=== PATIENT | male | born 1985 | race Two or more races ===

== ENCOUNTER 2020-05-12 10:37 | Emergency (ER) | payer OTHER ==
[~2020-05-12] VITALS: Ht 175.3 cm; Wt 78.0 kg
[2020-05-12] MEDS ORDERED: IV NORMAL SALINE 1000ML BAG 1,000 ML IV SCH (11:01)
[2020-05-12 11:08] LABS: BILIRUBIN,URINE NEGATIVE (NEG); CLARITY,URINE CLEAR; COLOR,URINE AMBER; NITRITE,URINE NEGATIVE (NEG); PH,URINE 7.5 (<5.0-8.0); PROTEIN,URINE 100 mg/dL (NEG-TRACE); UROBILINOGEN,URINE 0.2 mg/dL (0.2 mg/dL)
[2020-05-12 11:09] LABS: BASO # 0.1 x10^3/uL (0.0-0.2); BASO % 1 % (0-3); EOS % 0 % (0-3); HEMATOCRIT 48.8 % (39.0-53.0); HEMOGLOBIN 16.8 g/dL (13.0-17.5); LYMPH # 1.5 x10^3/uL (1.0-4.8); LYMPH % 24 % (24-48); MEAN CORPUSCULAR HEMOGLOBIN 32 pg (25-35); MEAN CORPUSCULAR HGB CONC 35 g/dL (31-37); MEAN CORPUSCULAR VOLUME 93 fL (79-100); MONO # 0.4 x10^3/uL (0.0-1.1); MONO % 6 % (0-9); NEUT # 4.3 x10^3/uL (1.8-7.7); NEUT % 70 % (31-73); PLATELET COUNT 259 x10^3/uL (140-400); RED BLOOD COUNT 5.23 x10^6/uL (4.30-5.70); RED CELL DISTRIBUTION WIDTH 12.8 % (11.5-14.5); WHITE BLOOD COUNT 6.2 x10^3/uL (4.0-11.0)
[2020-05-12] MEDS ORDERED: PANTOPRAZOLE IV PUSH 40 MG VIAL. IVP ONE (11:15)
[2020-05-12] MEDS ORDERED: ONDANSETRON PF 4 MG/2 ML VIAL. IVP ONE (11:15)
[2020-05-12] MEDS ORDERED: IV NORMAL SALINE 1000ML BAG 1,000 ML IV ONE (11:15)
[2020-05-12 11:17] LABS: RBC,URINE 0 /HPF (0-2); WBC,URINE RARE /HPF (0-4)
[2020-05-12 11:18] LABS: BACTERIA,URINE 0 /HPF (0-FEW); PROTHROMBIN TIME PATIENT 11.9 SEC (11.7-14.0); SPERM,URINE PRESENT /HPF
--- NOTE | 2020-05-12 11:18 | PHYS DOC ---
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 He states he has continued to have nausea and vomiting and a burning sensation in his generalized abdomen area. He states he had a normal bowel movement today. He states that his vomit is either a yellow color or today it was clear with dark specks in it. He states that yesterday he tried to eat but it came back up. He states that he knows that whenever he drinks beer that sometimes it makes him hungry so he decided to drink 2 beers yesterday because he wanted to eat because he is feeling weak and he continued to vomit. He states that he works 10 hours a day driving a truck and then when he gets home he usually drinks 2-3 beers at night. He states he does not usually drink but he is going through a divorce. He states that his and children are in [place] and he is here by himself. He rates his burning abdominal discomfort a 9 out of 10. He states it is more of a discomfort rather than pain. Not taking any medications. He does not take any medications daily. (HAYLIE MORALES APRN) Review of Systems: Review of Systems: Constitutional: Denies fever or chills. [] Eyes: Denies change in visual acuity. [] HENT: Denies nasal congestion or sore throat. [] Respiratory: Denies cough or shortness of breath. [] Cardiovascular: Denies chest pain or edema. [] GI: + abdominal pain, +nausea, +vomiting with dark specks, denies bloody stools. + diarrhea. [] : Denies dysuria. [] Musculoskeletal: Denies back pain or joint pain. [] Integument: Denies rash. [] Neurologic: Denies headache, focal weakness or sensory changes. [] Endocrine: Denies polyuria or polydipsia. [] Lymphatic: Denies swollen glands. [] Psychiatric: Denies depression or anxiety. [] (HAYLIE MORALES APRN) Heart Score: Risk Factors: Risk Factors: DM, Current or recent (<one month) smoker, HTN, HLP, family history of CAD, obesity. Risk Scores: Score 0 - 3: 2.5% MACE over next 6 weeks - Discharge Home Score 4 - 6: 20.3% MACE over next 6 weeks - Admit for Clinical Observation Score 7 - 10: 72.7% MACE over next 6 weeks - Early Invasive Strategies (HAYLIE MORALES APRN) Current Medications: Current Medications Medications (Trade) Dose Ordered Sig/Raymond Start Time Stop Time Status Last Admin Dose Admin Ondansetron HCl (Zofran) 4 mg 1X ONCE 05/12/20 11:15 05/12/20 11:16 UNV Pantoprazole Sodium (PROTONIX VIAL for IV PUSH) 40 mg 1X ONCE 05/12/20 11:15 05/12/20 11:16 UNV Sodium Chloride 1,000 ml @ 1,000 mls/hr Q1H 05/12/20 11:01 05/12/20 12:00 UNV (HAYLIE MORALES APRN) Physical Exam: PE: Constitutional: Well developed, well nourished, no acute distress, non-toxic appearance. [] HENT: Normocephalic, atraumatic, bilateral external ears normal, oropharynx moist, no oral exudates, nose normal. [] Eyes: PERRLA, EOMI, conjunctiva normal, no discharge. [] Neck: Normal range of motion, no tenderness, supple, no stridor. [] Cardiovascular:Heart rate regular rhythm, no murmur [] Lungs & Thorax: Bilateral breath sounds clear to auscultation [] Abdomen: Bowel sounds normal, soft, RLQ tenderness, no masses, no pulsatile masses. [] Skin: Warm, diaphoretic, no erythema, no rash. [] Back: No tenderness, no CVA tenderness. [] Extremities: No tenderness, no cyanosis, no clubbing, ROM intact, no edema. [] Neurologic: Alert and oriented X 3, normal motor function, normal sensory function, no focal deficits noted. [] Psychologic: Affect normal, judgement normal, mood normal. [] (HAYLIE MORALES APRN) EKG: EK AND READ BY DR AUGUSTIN SINUS RHYTHM AND NO STEMI[] (HAYLIE MORALES APRN) Radiology/Procedures: Radiology/Procedures: [] Impression: [facility] [address] [place] [address] IMAGING REPORT Signed PATIENT: AVIVA BROWN: [id number] : 1985 LOCATION: ER AGE: 34 SEX: M EXAM STATUS: REG ER ORD. PHYSICIAN: HAYLIE MORALES APRN REASON: vomiting, abdominal pain PROCEDURE: CT ABD PELV W/ IV CONTRST ONLY Examination: CT ABD PELV W/ IV CONTRST ONLY History: Reason: vomiting, abdominal pain / Spl. Instructions: opmni 300 75ml / History: Comparison/Correlation: None Findings: Axial images of the abdomen and pelvis were obtained following IV contrast. Sagittal and coronal reformatted images were provided. Lung bases are clear. Liver, spleen, pancreas, adrenal glands, and kidneys are normal. Gallbladder fossa is unremarkable. There is no bowel obstruction. Diverticulosis is present. No inflammatory change about the cecum. No extraluminal gas. No large abdominal or pelvic lymph nodes. Minimal thickening of the ascending colon and hepatic flexure noted. Mild circumferential wall thickening involving distal transverse colon and descending colon also seen. No surrounding collections. Appendix is not delineated. Urinary bladder is unremarkable. Mild L4-5 disc space narrowing is present. Impression: Mild wall thickening of the colon which raises question of colitis. No obstruction. No focal inflammatory process or collection seen. Minimal diverticulosis. PQRS Compliance Statement: One or more of the following individualized dose reduction techniques were utilized for this examination: 1. Automated exposure control 2. Adjustment of the mA and/or kV according to patient size 3. Use of iterative reconstruction technique Electronically signed by: Adonis Awad MD (05/12/2020 12:00 PM) [id number] DICTATED and SIGNED BY: ADONIS AWAD MD DATE: 05/12/20 1200 (HAYLIE MORALES APRN) Course & Med Decision Making: Course & Med Decision Making Pertinent Labs and Imaging studies reviewed. (See chart for details) See HPI. Alert and oriented x4. Speaks in full complete sentences. Ambulatory with steady gait. Skin is pink, moist, warm. Abdomen is soft but slightly tender to the right lower quadrant. Patient denies fever, chest pain, shortness of breath, cough, dizziness, headache, syncope, blood in his stool, vision changes, focal weakness, numbness or tingling. Patient is given 2 L of normal saline, Protonix, Zofran in the ED. Impression: Mild wall thickening of the colon which raises question of colitis. No obstruction. No focal inflammatory process or collection seen. Minimal diverticulosis. Patient states after the Protonix, Zofran was given that the nausea is better but he still having the burning sensation in his abdominal pain. Patient is given a GI cocktail and also this will p.o. challenge him to make sure he can keep it down. Patient has successfully been p.o. challenged. He is still complaining of generalized epigastric burning. He states that it has gotten better that he rates it at a 5 or 6. Due to the patient being afebrile, and hemodynamically stable he will be discharged home. Patient will be sent home on Zofran, Protonix, Carafate, Cipro, Flagyl. She is referred to GI. 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 I was available for consultation as needed during the patient's visit in the emergency department. I agree with the clinical impression, plans and disposition. (LUZ AUGUSTIN MD) Carlos Enriqueon Disclaimer: Allyssa Disclaimer: This electronic medical record was generated, in whole or in part, using a voice recognition dictation system. (HAYLIE MORALES APRN) Departure Departure Impression: Primary Impression: Colitis Additional Impressions: Vomiting Qualified Codes: R11.2 - Nausea with vomiting, unspecified Abdominal pain Qualified Codes: R10.13 - Epigastric pain Gastritis Qualified Codes: K29.20 - Alcoholic gastritis without bleeding Disposition: 01 DC HOME SELF CARE/HOMELESS Condition: STABLE Referrals: NO PCP (PCP) LUZ HOLLY MD Patient Instructions: Colitis, Gastritis, Adult, Nausea and Vomiting Additional Instructions: Follow-up with either your primary care physician or the GI doctor I have r eferred you to. Drink plenty of fluids. Slowly increase her diet. Start with clear liquids, then soft foods then solids. Take medications as prescribed. Do not drink alcohol until you are totally done with the antibiotics and are feeling better. Scripts Metronidazole (FLAGYL) 500 Mg Tablet 1 TAB PO BID, #14 TAB Prov: HAYLIE MORALES SECOND TIME WORKER 05/12/20 Ciprofloxacin Hcl (CIPROFLOXACIN HCL) 500 Mg Tablet 1 TAB PO BID, #14 TAB Prov: HAYLIE MORALES APRN 05/12/20 Sucralfate (CARAFATE) 1 Gm/10 Ml Oral.susp 10 ML PO QID for 14 Days, #560 ML 0 Refills before food Prov: HAYLIE MORALES APRN 05/12/20 Pantoprazole Sodium (PROTONIX) 20 Mg Tablet.dr 1 TAB PO DAILY, #30 TAB Prov: HAYLIE MORALES APRN 05/12/20 Ondansetron (ONDANSETRON ODT) 4 Mg Tab.rapdis 1 TAB PO PRN Q6-8HRS, #25 TAB Prov: HAYLIE MORALES APRN 05/12/20 HAYLIE MORALES APRN May 12, 2020 11:18 LUZ AUGUSTIN MD May 12, 2020 14:17
[2020-05-12 11:25] LABS: CALCIUM 9.1 mg/dL (8.5-10.1); CREATININE 0.9 mg/dL (0.7-1.3); GFR 95.5; POTASSIUM 3.8 mmol/L (3.5-5.1)
[2020-05-12 11:32] LABS: ALBUMIN 4.1 g/dL (3.4-5.0); ALBUMIN/GLOBULIN RATIO 1.1 (1.0-1.7); TOTAL BILIRUBIN 0.3 mg/dL (0.2-1.0)
[2020-05-12 11:55] LABS: AMPHETAMINE/METHAMPHETAMINE NEG (NEG); BARBITURATES NEG (NEG); BENZODIAZEPINES NEG (NEG); CANNABINOIDS NEG (NEG); COCAINE NEG (NEG); METHADONE NEG (NEG); OPIATES NEG (NEG); PHENCYCLIDINE NEG (NEG)
[2020-05-12] MEDS ORDERED: CONTRAST GIVEN. MC PRN (12:00)
[2020-05-12] MEDS ORDERED: IOHEXOL 300 MG/ML 100ML VIAL. IV ONE (12:00)
--- NOTE | 2020-05-12 12:03 | RAD ---
Examination: CT ABD PELV W/ IV CONTRST ONLY History: Reason: vomiting, abdominal pain / Spl. Instructions: opmni 300 75ml / History: Comparison/Correlation: None Findings: Axial images of the abdomen and pelvis were obtained following IV contrast. Sagittal and coronal reformatted images were provided. Lung bases are clear. Liver, spleen, pancreas, adrenal glands, and kidneys are normal. Gallbladder fossa is unremarkable. There is no bowel obstruction. Diverticulosis is present. No inflammatory change about the cecum. No extraluminal gas. No large abdominal or pelvic lymph nodes. Minimal thickening of the ascending colon and hepatic flexure noted. Mild circumferential wall thickening involving distal transverse colon and descending colon also seen. No surrounding collections. Appendix is not delineated. Urinary bladder is unremarkable. Mild L4-5 disc space narrowing is present. Impression: Mild wall thickening of the colon which raises question of colitis. No obstruction. No focal inflammatory process or collection seen. Minimal diverticulosis. PQRS Compliance Statement: One or more of the following individualized dose reduction techniques were utilized for this examination: 1. Automated exposure control 2. Adjustment of the mA and/or kV according to patient size 3. Use of iterative reconstruction technique Electronically signed by: Adonis Bills MD (05/12/2020 12:00 PM) [id number]
[2020-05-12] MEDS ORDERED: LIDO:MAALOX 1:1 20 ML SINGLE DOSE. SWSW ONE (12:15)
[2020-05-12 13:45] VITALS: BP 115/70
[2020-05-12] MEDS ORDERED: PANT20TA2 PO (14:13)
[2020-05-12] MEDS ORDERED: CIPR500T PO (14:13)
[2020-05-12] MEDS ORDERED: SUCR1ORA5 PO (14:13)
[2020-05-12] MEDS ORDERED: METR500T PO (14:13)
[2020-05-12] MEDS ORDERED: ONDA4TAB12 PO (14:13)
--- NOTE | 2020-05-12 18:07 | EKG ---
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
== END 2020-05-12 14:41 | disposition home or self-care (01) ==
LOC: ER 10:37
DX: K52.9 Noninfective gastroenteritis and colitis, unspecified (principal); K29.20 Alcoholic gastritis without bleeding; F10.10 Alcohol abuse, uncomplicated; Y90.5 Blood alcohol level of 100-119 mg/100 ml; K57.90 Diverticulosis of intestine, part unspecified, without perforation or abscess without bleeding
CPT/HCPCS: 36415; 74177; 80053; 80307; 81001; 83690; 84484; 85025; 85610; 93005; 96361; 96374; 96375; 99285; C9113; G0480; J2405; J7030; Q9967

== ENCOUNTER 2020-08-04 13:34 | Emergency (ER) | payer OTHER ==
[~2020-08-04] VITALS: Ht 177.8 cm; Wt 77.2 kg
[~2020-08-04 13:34] MED LIST: CIPR500T PO; METR500T PO; ONDA4TAB12 PO; PANT20TA2 PO; SUCR1ORA5 PO
--- NOTE | 2020-08-04 13:54 | PHYS DOC ---
Past Medical History Past Medical History: No Pertinent History Past Surgical History: No Surgical History Smoking Status: Current Every Day Smoker Alcohol Use: Heavy General Adult EDM: Chief Complaint: NAUSEA/VOMITING/DIARRHA HPI: HPI: Patient is a 34 year old male with no significant medical history who presents to the ED today complaining of nausea, vomiting, moderate left-sided headache described as "numbing", symptoms began 2 days ago. Denies any fever. Also complaining of shortness of breath. Denies any chest pain. Denies anything specifically exacerbating or relieving his symptoms. Review of Systems: Review of Systems: Constitutional: Denies fever or chills. [] Eyes: Denies change in visual acuity. [] HENT: Denies nasal congestion or sore throat. [] Respiratory: Denies cough or shortness of breath. [] Cardiovascular: Denies chest pain or edema. [] GI: Reports nausea vomiting. Denies abdominal pain, bloody stools or diarrhea. [] : Denies dysuria. [] Musculoskeletal: Denies back pain or joint pain. [] Integument: Denies rash. [] Neurologic: Reports headache, denies focal weakness or sensory changes. [] Psychiatric: Denies depression or anxiety. [] Heart Score: Risk Factors: Risk Factors: DM, Current or recent (<one month) smoker, HTN, HLP, family history of CAD, obesity. Risk Scores: Score 0 - 3: 2.5% MACE over next 6 weeks - Discharge Home Score 4 - 6: 20.3% MACE over next 6 weeks - Admit for Clinical Observation Score 7 - 10: 72.7% MACE over next 6 weeks - Early Invasive Strategies Allergies: Allergies: Allergies Coded Allergies Type Severity Reaction Last Updated Verified No Known Drug Allergies 08/04/20 No Physical Exam: PE: Constitutional: Well developed, well nourished, no acute distress, non-toxic appearance. [] HENT: Normocephalic, atraumatic, bilateral external ears normal, oropharynx moist, no oral exudates, nose normal. [] Eyes: PERRLA, EOMI, conjunctiva normal, no discharge. [] Neck: Normal range of motion, no tenderness, supple, no stridor. [] Cardiovascular:Heart rate regular rhythm, no murmur [] Lungs & Thorax: Bilateral breath sounds clear to auscultation [] Abdomen: Bowel sounds normal, soft, no tenderness, no masses, no pulsatile masses. [] Skin: Warm, dry, no erythema, no rash. [] Back: No tenderness, no CVA tenderness. [] Extremities: No tenderness, no cyanosis, no clubbing, ROM intact, no edema. [] Neurologic: Alert and oriented X 3, normal motor function, normal sensory function, no focal deficits noted. [] Psychologic: Affect normal, judgement normal, mood normal. [] EKG: EKG: [] Radiology/Procedures: Radiology/Procedures: []PROCEDURE: ABDOMEN SUPINE & UPRIGHT Portable AP supine and upright upright views of the abdomen Clinical indications: Nausea and vomiting and shortness of air. FINDINGS: No obstructive bowel pattern is seen. No significant fecal retention is seen. No air-fluid levels or free intraperitoneal air is seen. Old healed left ninth rib fracture is seen. IMPRESSION: No acute abnormality. Electronically signed by: Jas Cordero MD (08/04/2020 2:28 PM) [id number] DICTATED and SIGNED BY: JAS CORDERO MD DATE: 08/04/20 [id number] 0 PROCEDURE: CT HEAD WO CONTRAST INDICATION: Reason: headache / Spl. Instructions: / History: COMPARISON: None. TECHNIQUE: Axial CT images obtained through the head without intravenous contrast. One or more of the following individualized dose reduction techniques were utilized for this examination: 1. Automated exposure control; 2. Adjustment of the mA and/or kV according to patient size; 3. Use of iterative reconstruction technique. FINDINGS: No midline shift. Basal cisterns patent. Ventricles and sulci are unremarkable. No acute osseous abnormality. Orbits and paranasal sinuses unremarkable. IMPRESSION: * Within the right cerebral hemisphere posteriorly at the parietal region there is an area of low density identified. This has a nonspecific appearance with chronic causes such as sequela of prior insult or migraine within the differential but acute etiology remains within the differential given that there is not a prior available for review to assess acuity. It may be helpful to obtain an MRI to further assess and ensure that this is not acute in nature from causes such as edema from ischemia or a lesion at this site. Report called to the emergency department at 2:30 PM on date of exam. Electronically signed by: Luis Calabrese MD (08/04/2020 2:35 PM) [id number] DICTATED and SIGNED BY: LUIS CALABRESE MD DATE: 08/04/20 [id number] 0 PROCEDURE: ABDOMEN SUPINE & UPRIGHT Portable AP supine and upright upright views of the abdomen Clinical indications: Nausea and vomiting and shortness of air. FINDINGS: No obstructive bowel pattern is seen. No significant fecal retention is seen. No air-fluid levels or free intraperitoneal air is seen. Old healed left ninth rib fracture is seen. IMPRESSION: No acute abnormality. Electronically signed by: Jas Cordero MD (08/04/2020 2:28 PM) [id number] DICTATED and SIGNED BY: JAS CORDERO MD DATE: 08/04/20 [id number] 0 Course & Med Decision Making: Course & Med Decision Making Pertinent Labs and Imaging studies reviewed. (See chart for details) This is a 34-year-old male patient presented to the ED today complaining of nausea, vomiting, headache, symptoms began 2 days ago. Vitals on arrival to the ED temperature 98.8, heart rate 82, respiration 18, O2 sats 97%, blood pressure 155/98. CBC CMP with no acute findings Radiologist called regarding patient's CAT scan of the head concerned patient could have CVA. He requested we do MRI of the brain with and without contrast. Patient went to MRI, he was unable to complete the study because he was afraid of being in an MRI machine. Results from the study head showed no evidence of acute CVA, no apparent hemorrhage or mass. Previously area of concern could represent a subacute or remote infarct greater than 14 days of age. [address] Conway he stated patient can go home if his headache is under control. Patient was given Solu-Medrol in the ED, he has no headache, he was discharged to home. Follow-up with PCP as well as Dr. Conway in 1 week You were evaluated in the emergency room for headache nausea and vomiting. Please follow-up with your primary care doctor as well as the provided doctor in 1 to 2 weeks Allyssa Disclaimer: Dragguy Disclaimer: This electronic medical record was generated, in whole or in part, using a voice recognition dictation system. Departure Departure Impression: Primary Impression: Nausea and vomiting Qualified Codes: R11.2 - Nausea with vomiting, unspecified Additional Impressions: Headache Qualified Codes: R51.9 - Headache, unspecified Person under investigation for COVID-19 Disposition: 01 DC HOME SELF CARE/HOMELESS Condition: STABLE Referrals: NO PCP (PCP) follow up with your doctor in 1-2 weeks Patient Instructions: Headache, FAQs, Nausea and Vomiting, [id number] Additional Instructions: You were evaluated in the emergency room for headache with nausea and vomiting. Please follow-up with your primary care doctor and the provided neurologist in 1 to 2 weeks. Please push fluids and maintain good hand hygiene. Take the prescribed medications as needed for your symptoms. You were tested for COVID- 19, we will call you in the next 3 to 4 days with the results. Quarantine yourself until you get your COVID results Scripts Famotidine (FAMOTIDINE) 20 Mg Tablet 20 MG PO DAILY, #14 TAB Prov: JUSTIN MCWILLIAMS APRN 08/04/20 Dicyclomine Hcl (DICYCLOMINE HCL) 20 Mg Tablet 1 TAB PO TID, #30 TAB 1 Refill Prov: JUSTIN MCWILLIAMS APRN 08/04/20 Ondansetron (ONDANSETRON ODT) 4 Mg Tab.rapdis 1 TAB PO PRN Q6-8HRS, #16 TAB Prov: JUSTIN MCWILLIAMS APRN 08/04/20 NIHSS Stroke Scale NIH Stroke Scale: NIH Stroke Scale Response (Comments) Value Level of Consciousness: 0 Alert/Responsive 0 LOC Questions: 0 Answers both correctly 0 LOC Commands: 0 Performs both tasks 0 Best Gaze: 0 Normal 0 Visual: 0 No visual loss 0 Facial Palsy: 0 Normal, symmetrical 0 Motor - Left Arm 0 No drift 0 Motor - Right Arm 0 No drift 0 Motor - Left Leg 0 No drift 0 Motor: Right Leg 0 No drift 0 Limb Ataxia: 0 Absent 0 Sensory: 0 No loss 0 Best Language: 0 Normal 0 Dysathria: 0 Normal 0 Extinction and Inattention: 0 Normal 0 Total 0 JUSTIN MCWILLIAMS APRN Aug 04, 2020 13:54
[2020-08-04] MEDS ORDERED: DEXAMETHASONE SOD PHOS 20 MG/5 ML VIAL. IV ONE (14:00)
[2020-08-04] MEDS ORDERED: ONDANSETRON PF 4 MG/2 ML VIAL. IVP ONE (14:00)
[2020-08-04] MEDS ORDERED: FAMOTIDINE 20 MG/2 ML VIAL IVP ONE (14:00)
[2020-08-04] MEDS ORDERED: IV NORMAL SALINE 1000ML BAG 1,000 ML IV ONE (14:00)
[2020-08-04 14:06] LABS: BILIRUBIN,URINE NEGATIVE (NEG); CLARITY,URINE CLEAR; NITRITE,URINE NEGATIVE (NEG); PH,URINE 8.5 (<5.0-8.0); PROTEIN,URINE NEGATIVE (NEG-TRACE); UROBILINOGEN,URINE 0.2 mg/dL (0.2 mg/dL)
[2020-08-04 14:12] LABS: BARBITURATES NEG (NEG); BENZODIAZEPINES NEG (NEG); CANNABINOIDS NEG (NEG); COCAINE NEG (NEG); METHADONE NEG (NEG); OPIATES NEG (NEG); PHENCYCLIDINE NEG (NEG)
[2020-08-04 14:14] LABS: CALCIUM 9.1 mg/dL (8.5-10.1); CREATININE 0.9 mg/dL (0.7-1.3); GFR 95.5; POTASSIUM 3.5 mmol/L (3.5-5.1)
[2020-08-04 14:14] LABS: AMPHETAMINE/METHAMPHETAMINE NEG (NEG)
[2020-08-04 14:20] LABS: ALBUMIN 3.8 g/dL (3.4-5.0); ALBUMIN/GLOBULIN RATIO 1.1 (1.0-1.7); MAGNESIUM 1.9 mg/dL (1.8-2.4); TOTAL BILIRUBIN 0.6 mg/dL (0.2-1.0); TOTAL PROTEIN 7.4 g/dL (6.4-8.2)
[2020-08-04 14:22] LABS: BASO % 0 % (0-3); EOS % 0 % (0-3); HEMATOCRIT 42.1 % (39.0-53.0); HEMOGLOBIN 14.8 g/dL (13.0-17.5); LYMPH # 0.8 x10^3/uL (1.0-4.8); LYMPH % 15 % (24-48); MEAN CORPUSCULAR HEMOGLOBIN 33 pg (25-35); MEAN CORPUSCULAR HGB CONC 35 g/dL (31-37); MEAN CORPUSCULAR VOLUME 93 fL (79-100); MONO # 0.5 x10^3/uL (0.0-1.1); MONO % 8 % (0-9); NEUT # 4.2 x10^3/uL (1.8-7.7); NEUT % 76 % (31-73); PLATELET COUNT 226 x10^3/uL (140-400); RED BLOOD COUNT 4.54 x10^6/uL (4.30-5.70); RED CELL DISTRIBUTION WIDTH 13.3 % (11.5-14.5); WHITE BLOOD COUNT 5.5 x10^3/uL (4.0-11.0)
--- NOTE | 2020-08-04 14:30 | RAD ---
Portable AP supine and upright upright views of the abdomen Clinical indications: Nausea and vomiting and shortness of air. FINDINGS: No obstructive bowel pattern is seen. No significant fecal retention is seen. No air-fluid levels or free intraperitoneal air is seen. Old healed left ninth rib fracture is seen. IMPRESSION: No acute abnormality. Electronically signed by: Rod Cordero MD (08/04/2020 2:28 PM) [id number]
[2020-08-04 14:35] LABS: COLOR,URINE STRAW
[2020-08-04 14:37] LABS: BACTERIA,URINE 0 /HPF (0-FEW); RBC,URINE 0 /HPF (0-2); WBC,URINE 0 /HPF (0-4)
--- NOTE | 2020-08-04 14:37 | RAD ---
INDICATION: Reason: headache / Spl. Instructions: / History: COMPARISON: None. TECHNIQUE: Axial CT images obtained through the head without intravenous contrast. One or more of the following individualized dose reduction techniques were utilized for this examinat ion: 1. Automated exposure control; 2. Adjustment of the mA and/or kV according to patient size; 3 . Use of iterative reconstruction technique. FINDINGS: No midline shift. Basal cisterns patent. Ventricles and sulci are unremarkable. No acute osseous abnormality. Orbits and paranasal sinuses unremarkable. IMPRESSION: * Within the right cerebral hemisphere posteriorly at the parietal region there is an area of low de nsity identified. This has a nonspecific appearance with chronic causes such as sequela of prior insu lt or migraine within the differential but acute etiology remains within the differential given that there is not a prior available for review to assess acuity. It may be helpful to obtain an MRI to fur ther assess and ensure that this is not acute in nature from causes such as edema from ischemia or a lesion at this site. Report called to the emergency department at 2:30 PM on date of exam. Electronically signed by: Macho Carroll MD (08/04/2020 2:35 PM) [id number]
[2020-08-04] MEDS ORDERED: GADOTERATE 7.5 MMOL/15ML VIAL. IVP ONE (16:15)
--- NOTE | 2020-08-04 16:45 | RAD ---
MRI brain without contrast dated 08/04/2020. Comparison made to head CT dated same day. CLINICAL INDICATION: Headache TECHNIQUE: T1 sagittal and diffusion weighted imaging performed. The patient was unable to complete the exam. No contrast administered. FINDINGS: Evaluation is limited. There is no evidence of acute diffusion restriction. Previously described area of abnormal low density in the parasagittal right parietal lobe shows no definite MR correlate, alth ough there is a suggestion of some volume loss in this region on the sagittal images. No apparent hem orrhage or extra-axial collection. Posterior fossa and brainstem unremarkable. IMPRESSION: 1. Incomplete study. Limited exam. 2. No evidence of acute CVA. No apparent hemorrhage or mass. 3. Previously described area of low density in the parasagittal right parietal lobe. To correlate wit h some volume loss on the sagittal sequences and this could represent a subacute to remote infarct, g reater than 14 days of age. Correlate clinically. Electronically signed by: Chico Rogel MD (08/04/2020 4:42 PM) [id number]
[2020-08-04 17:16] VITALS: BP 149/83
[2020-08-04] MEDS ORDERED: FAMO20TA5 PO (17:25)
[2020-08-04] MEDS ORDERED: ONDA4TAB12 PO (17:25)
[2020-08-04] MEDS ORDERED: DICY20TA3 PO (17:25)
== END 2020-08-04 17:30 | disposition home or self-care (01) ==
LOC: ER 13:34
DX: R11.2 Nausea with vomiting, unspecified (principal); R51.9 Headache, unspecified; Z20.828 Contact with and (suspected) exposure to other viral communicable diseases; R06.02 Shortness of breath; F17.200 Nicotine dependence, unspecified, uncomplicated
CPT/HCPCS: 36415; 70450; 70553; 74021; 80053; 80307; 81001; 83690; 83735; 85025; 96361; 96374; 96375; 99285; C9803; G0480; J1100; J2405; J3490; J7030; U0003

== ENCOUNTER 2020-12-29 10:11 | Emergency (ER) | payer OTHER ==
[~2020-12-29] VITALS: Ht 175.3 cm; Wt 78.8 kg
[~2020-12-29 10:11] MED LIST changes: -CIPR500T PO; +CIPR500T2 PO; +DICY20TA3 PO; +FAMO20TA5 PO
--- NOTE | 2020-12-29 11:12 | PHYS DOC ---
Past Medical History Past Medical History: No Pertinent History Past Surgical History: No Surgical History Smoking Status: Former Smoker Alcohol Use: Occasionally General Adult EDM: Chief Complaint: ABDOMINAL PAIN HPI: HPI: Patient is a 35 year old male presents with a chief complaint of abdominal pain associated with nausea vomiting and diarrhea. Patient states symptoms started on Sunday progressively worse since onset. Patient abdominal pain is bilateral upper quadrants with radiation to the flank. Review of Systems: Review of Systems: Review of systems: Constitutional symptoms- No fever, no chills. Eyes- No Discharge, No Visual Loss Respiratory symptoms- No shortness of breath, No wheezing, No Dyspnea on Exertion Cardiovascular Systems; No chest pain, No Palpitations, No syncope Gastrointestinal symptoms: Positive abdominal pain, Positive nausea, Positive vomiting Positive diarrhea. Genitourinary symptoms: No dysuria. Musculoskeletal symptoms: No back pain No extremity pain. NEUROLOGICAL Symptoms: No headache, no generalized weakness; No focal Weakness Heart Score: C/O Chest Pain: N/A Risk Factors: Risk Factors: DM, Current or recent (<one month) smoker, HTN, HLP, family history of CAD, obesity. Risk Scores: Score 0 - 3: 2.5% MACE over next 6 weeks - Discharge Home Score 4 - 6: 20.3% MACE over next 6 weeks - Admit for Clinical Observation Score 7 - 10: 72.7% MACE over next 6 weeks - Early Invasive Strategies Allergies: Allergies: Allergies Coded Allergies Type Severity Reaction Last Updated Verified No Known Drug Allergies 08/04/20 No Physical Exam: PE: General: alert, no acute distress. Skin: warm, dry and intact. Head:: Normocephalic, atraumatic. Neck: Trachea midline. Eyes: EOMI, Normal conjunctiva, No drainage CARDIOVASCULAR: Regular rate and rhythm RESPIRATORY: No respiratory distress Back: Full range of motion. MUSCULOSKELETAL: Full range of motion of bilateral upper and lower extremities. GASTROINTESTINAL: Diffuse abdominal tenderness soft without rebound or guarding NEUROLOGICAL: Alert and noted to person, place and time. No neurological deficits observed Psychiatric: Cooperative. Normal judgment Current Patient Data: Vital Signs: Vital Signs Date Time Temp Pulse Resp B/P (MAP) Pulse Ox O2 Delivery O2 Flow Rate FiO2 12/29/20 10:20 98.6 82 16 149/98 (115) 94 Room Air 98.6 EKG: EKG: [] Radiology/Procedures: Radiology/Procedures: [] Impression: Findings: Lower chest: Lung bases are clear. The heart is normal in size. Liver: Normal. Gallbladder/Biliary Tree: Normal. Pancreas: Normal. Spleen: Normal. Adrenal Glands: Normal. Kidneys/Ureters/Bladder: Normal. Reproductive Organs: Normal. Stomach, small bowel, and colon: The stomach and small bowel are normal. The appendix is not well visualized but there is no inflammation in the right lower quadrant.. There is questionable wall thickening of the ascending colon through sigmoid colon, although the colon is incompletely distended, which could exaggerate this appearance. Prominent submucosal fat in the colon may indicate chronic inflammation. Vasculature: Abdominal aorta is normal in caliber. Lymph Nodes: No lymphadenopathy. Peritoneum and retroperitoneum: There is no free fluid or free air. Bones: No acute osseous abnormality. Impression: Questionable mild colonic wall thickening. This appearance may be exaggerated by underdistention of the colon. Correlate for colitis. Electronically signed by: Sonia Mays MD (12/29/2020 12:26 PM) [id number] Course & Med Decision Making: Course & Med Decision Making Pertinent Labs and Imaging studies reviewed. (See chart for details) [] Treatment with Toradol Zofran Pepcid IV fluids. Patient CT imaging consistent with colitis. He will just be discharged home with Zofran Cipro Flagyl. Allyssa Disclaimer: Allyssa Disclaimer: This electronic medical record was generated, in whole or in part, using a voice recognition dictation system. Departure Departure Impression: Primary Impression: Colitis Additional Impression: Abdominal pain Disposition: HOME / SELF CARE / HOMELESS Condition: STABLE Referrals: NO PCP (PCP) Patient Instructions: Abdominal Pain (Nonspecific), Colitis Scripts Metronidazole (FLAGYL) 500 Mg Tablet 1 TAB PO BID, #14 TAB Prov: AMIRA MORSE I DO 12/29/20 Ciprofloxacin Hcl (CIPRO) 500 Mg Tablet 1 TAB PO BID for 7 Days, #14 TAB 0 Refills Prov: AMIRA MORSE I DO 12/29/20 Ondansetron Hcl (ZOFRAN) 4 Mg Tablet 1 TAB PO Q6HRS, #20 TAB Prov: AMIRA MORSE I DO 12/29/20 AMIRA MORSE I DO Dec 29, 2020 11:12
[2020-12-29 11:14] LABS: BASO % 1 % (0-3); EOS % 1 % (0-3); HEMOGLOBIN 15.7 g/dL (13.0-17.5); LYMPH # 1.5 x10^3/uL (1.0-4.8); LYMPH % 31 % (24-48); MEAN CORPUSCULAR HEMOGLOBIN 34 pg (25-35); MEAN CORPUSCULAR HGB CONC 35 g/dL (31-37); MEAN CORPUSCULAR VOLUME 97 fL (79-100); MONO # 0.3 x10^3/uL (0.0-1.1); MONO % 8 % (0-9); NEUT # 2.8 x10^3/uL (1.8-7.7); NEUT % 60 % (31-73); PLATELET COUNT 267 x10^3/uL (140-400); RED BLOOD COUNT 4.65 x10^6/uL (4.30-5.70); RED CELL DISTRIBUTION WIDTH 13.6 % (11.5-14.5); WHITE BLOOD COUNT 4.6 x10^3/uL (4.0-11.0)
[2020-12-29] MEDS ORDERED: IV NORMAL SALINE 1000ML BAG 1,000 ML IV ONE (11:15)
[2020-12-29 11:17] LABS: BILIRUBIN,URINE NEGATIVE (NEG); CLARITY,URINE CLEAR; COLOR,URINE YELLOW; NITRITE,URINE NEGATIVE (NEG); PH,URINE 7.5 (<5.0-8.0); PROTEIN,URINE NEGATIVE (NEG-TRACE); UROBILINOGEN,URINE 0.2 mg/dL (0.2 mg/dL)
[2020-12-29] MEDS ORDERED: ONDANSETRON PF 4 MG/2 ML VIAL. ONE (11:18)
[2020-12-29 11:22] LABS: CALCIUM 8.5 mg/dL (8.5-10.1); GFR 84.1; POTASSIUM 3.5 mmol/L (3.5-5.1)
[2020-12-29 11:28] LABS: ALBUMIN/GLOBULIN RATIO 1.1 (1.0-1.7); TOTAL BILIRUBIN 0.4 mg/dL (0.2-1.0); TOTAL PROTEIN 7.5 g/dL (6.4-8.2)
[2020-12-29] MEDS ORDERED: ONDANSETRON PF 4 MG/2 ML VIAL. IVP ONE (11:30)
[2020-12-29] MEDS ORDERED: IOHEXOL 300 MG/ML 100ML VIAL. IV ONE (11:30)
[2020-12-29] MEDS ORDERED: FAMOTIDINE 20 MG/2 ML VIAL IVP ONE (11:30)
[2020-12-29] MEDS ORDERED: CONTRAST GIVEN. MC PRN (11:30)
[2020-12-29] MEDS ORDERED: KETOROLAC 30 MG/ML VIAL. IVP ONE (11:30)
[2020-12-29 11:32] LABS: BACTERIA,URINE 0 /HPF (0-FEW); RBC,URINE 0 /HPF (0-2)
--- NOTE | 2020-12-29 12:28 | RAD ---
Exam: CT abdomen/pelvis with intravenous contrast Indication: Abdominal pain Comparison: CT abdomen and pelvis 05/12/2020 Technique: Helical CT imaging performed of the abdomen and pelvis after the intravenous administratio n of 75 mL Isovue-300 contrast. Sagittal and coronal reformats were obtained. One or more of the following individualized dose reduction techniques were utilized for this examinat ion: 1. Automated exposure control 2. Adjustment of the mA and/or kV according to patient size 3. Use of iterative reconstruction technique. Findings: Lower chest: Lung bases are clear. The heart is normal in size. Liver: Normal. Gallbladder/Biliary Tree: Normal. Pancreas: Normal. Spleen: Normal. Adrenal Glands: Normal. Kidneys/Ureters/Bladder: Normal. Reproductive Organs: Normal. Stomach, small bowel, and colon: The stomach and small bowel are normal. The appendix is not well vis ualized but there is no inflammation in the right lower quadrant.. There is questionable wall thicken ing of the ascending colon through sigmoid colon, although the colon is incompletely distended, which could exaggerate this appearance. Prominent submucosal fat in the colon may indicate chronic inflamm ation. Vasculature: Abdominal aorta is normal in caliber. Lymph Nodes: No lymphadenopathy. Peritoneum and retroperitoneum: There is no free fluid or free air. Bones: No acute osseous abnormality. Impression: Questionable mild colonic wall thickening. This appearance may be exaggerated by underdis tention of the colon. Correlate for colitis. Electronically signed by: Sonia Mays MD (12/29/2020 12:26 PM) [id number]
[2020-12-29] MEDS ORDERED: ONDA4TAB7 PO (12:37)
[2020-12-29] MEDS ORDERED: CIPR500T94 PO (12:37)
[2020-12-29] MEDS ORDERED: METR500T PO (12:37)
[2020-12-29 12:40] VITALS: BP 145/94
== END 2020-12-29 13:20 | disposition home or self-care (01) ==
LOC: ER 10:11
DX: K52.9 Noninfective gastroenteritis and colitis, unspecified (principal); Z87.891 Personal history of nicotine dependence
CPT/HCPCS: 36415; 74177; 80053; 81001; 83690; 85025; 96361; 96374; 96375; 99285; J1885; J2405; J3490; J7030; Q9967

== ENCOUNTER 2021-03-30 11:01 | Emergency (ER) | payer OTHER ==
[~2021-03-30] VITALS: Ht 175.3 cm; Wt 80.3 kg
[~2021-03-30 11:01] MED LIST changes: +CIPR500T94 PO; +ONDA4TAB7 PO
[2021-03-30] MEDS ORDERED: LIDO:MAALOX 1:1 20 ML SINGLE DOSE. SWSW ONE (11:30)
[2021-03-30] MEDS ORDERED: FAMOTIDINE 20 MG/2 ML VIAL IVP ONE (11:30)
[2021-03-30] MEDS ORDERED: MULTIVIT INFUSN,ADULT 4,VIT K 10 ML, THIAMINE INJ 100 MG, FOLIC ACID INJ 1 MG in IV NOR... IV ONE (11:30)
[2021-03-30] MEDS ORDERED: ONDANSETRON PF 4 MG/2 ML VIAL. IVP ONE (11:30)
--- NOTE | 2021-03-30 11:33 | PHYS DOC ---
Past Medical History Past Medical History: No Pertinent History Past Surgical History: No Surgical History Smoking Status: Former Smoker Alcohol Use: Occasionally General Adult EDM: Chief Complaint: NAUSEA/VOMITING/DIARRHEA HPI: HPI: Patient is a 35 year old male with no significant medical history who presents to the ED today complaining of a sharp 8 out of 10 epigastric abdominal pain with nausea and vomiting and slight diarrhea, symptoms began 2 days ago. Patient denies anything exacerbating or relieving the pain. Denies any fever. He states he drank 24 beers on Sunday and 12 beers on Sunday and has not had alcohol since Sunday. Review of Systems: Review of Systems: Constitutional: Denies fever or chills. [] Eyes: Denies change in visual acuity. [] HENT: Denies nasal congestion or sore throat. [] Respiratory: Denies cough or shortness of breath. [] Cardiovascular: Denies chest pain or edema. [] GI: Reports abdominal pain, nausea vomiting and diarrhea, denies bloody stools : Denies dysuria. [] Musculoskeletal: Denies back pain or joint pain. [] Integument: Denies rash. [] Neurologic: Denies headache, focal weakness or sensory changes. [] Psychiatric: Denies depression or anxiety. [] Heart Score: C/O Chest Pain: N/A Risk Factors: Risk Factors: DM, Current or recent (<one month) smoker, HTN, HLP, family history of CAD, obesity. Risk Scores: Score 0 - 3: 2.5% MACE over next 6 weeks - Discharge Home Score 4 - 6: 20.3% MACE over next 6 weeks - Admit for Clinical Observation Score 7 - 10: 72.7% MACE over next 6 weeks - Early Invasive Strategies Current Medications: Current Medications Medications (Trade) Dose Ordered Sig/Raymond Start Time Stop Time Status Last Admin Dose Admin Famotidine (Pepcid Vial) 20 mg 1X ONCE 03/30/21 11:30 03/30/21 11:31 UNV Multi-Ingredient Mouthwash/Gargle (Gi Cocktail) 20 ml 1X ONCE 03/30/21 11:30 03/30/21 11:31 UNV Multivitamins 10 ml/Thiamine HCl 100 mg/Folic Acid 1 mg/Sodium Chloride 1,011.2 ml @ 1,000.088 mls/hr 1X ONCE 03/30/21 11:30 03/30/21 12:30 UNV Ondansetron HCl (Zofran) 4 mg 1X ONCE 03/30/21 11:30 03/30/21 11:31 UNV Allergies: Allergies: Allergies Coded Allergies Type Severity Reaction Last Updated Verified No Known Drug Allergies 08/04/20 No Physical Exam: PE: Constitutional: Well developed, well nourished, no acute distress, non-toxic appearance. [] HENT: Normocephalic, atraumatic, bilateral external ears normal, oropharynx moist, no oral exudates, nose normal. [] Eyes: PERRLA, EOMI, conjunctiva normal, no discharge. [] Neck: Normal range of motion, no tenderness, supple, no stridor. [] Cardiovascular:Heart rate regular rhythm, no murmur [] Lungs & Thorax: Bilateral breath sounds clear to auscultation [] Abdomen: Bowel sounds normal, soft, no tenderness, no masses, no pulsatile masses. [] Skin: Warm, dry, no erythema, no rash. [] Back: No tenderness, no CVA tenderness. [] Extremities: No tenderness, no cyanosis, no clubbing, ROM intact, no edema. [] Neurologic: Alert and oriented X 3, normal motor function, normal sensory function, no focal deficits noted. [] Psychologic: Affect normal, judgement normal, mood normal. [] Current Patient Data: Vital Signs: Vital Signs Date Time Temp Pulse Resp B/P (MAP) Pulse Ox O2 Delivery O2 Flow Rate FiO2 03/30/21 11:15 98.1 85 16 139/97 (111) 98 Room Air 98.1 EKG: EKG: [] Radiology/Procedures: Radiology/Procedures: []PROCEDURE: CT ABD PELV W/ IV CONTRST ONLY EXAMINATION: CT abdomen and pelvis with IV contrast. INDICATION:35 years, Male, epigastric pain. TECHNIQUE: Axial CT images of the abdomen and pelvis were obtained. Coronal and sagittal reformatted performed. COMPARISON: 12/29/2020. Exposure: One or more of the following individualized dose reduction techniques were utilized for this examination: 1. Automated exposure control 2. Adjustment of the mA and/or kV according to patient size 3. Use of iterative reconstruction technique. FINDINGS: LOWER CHEST: Unremarkable. ABDOMEN/PELVIS: Normal size and morphology of the liver with homogeneous enhancement. Unchanged subcentimeter hypodensity in the right hepatic lobe, too small to characterize, favors benign etiology such as cyst. No suspicious focal hepatic lesion. Gallbladder, biliary ducts, spleen and pancreas are unremarkable. No hydronephrosis or nephrolithiasis in either kidney. No adrenal nodule. No bowel obstruction or wall thickening. Few colonic diverticulosis without acute diverticulitis. Normal appendix. Normal caliber abdominal aorta. Mesent adarsh arteries and portal vein are patent. No pneumoperitoneum or ascites. No abdominopelvic lymphadenopathy by size criteria. Unremarkable urinary bladder and prostate. Small to moderate and left testicular hydrocele. MUSCULOSKELETAL: No acute osseous process. IMPRESSION: 1. No acute abnormality in the abdomen or pelvis. 2. Few colonic diverticulosis without acute diverticulitis. Electronically signed by: Femi Marie MD (03/30/2021 12:51 PM) [id number] DICTATED and SIGNED BY: FEMI MARIE MD DATE: 03/30/21 [id number] Course & Med Decision Making: Course & Med Decision Making Pertinent Labs and Imaging studies reviewed. (See chart for details) This is a 35-year-old male patient presented to the ED today complaining of abdominal pain with nausea and vomiting as well as slight diarrhea, symptoms for 2 days. CBC CMP lipase with no acute findings, alcohol level 143. CT of the abdomen and pelvic is negative for any acute findings. Negative rapid covid test. At this point I asked patient when he last took alcohol, he states he drank yesterday which is different from the statement he gave when he arrived in the ED. Encouraged patient to consider getting help for alcohol use, he refused. He was discharged to home. Follow-up with SUMAN Spivey Disclaimer: Allyssa Disclaimer: This electronic medical record was generated, in whole or in part, using a voice recognition dictation system. Departure Departure Impression: Primary Impression: Alcohol intoxication Qualified Codes: F10.920 - Alcohol use, unspecified with intoxication, uncomplicated Additional Impressions: Epigastric pain Nausea and vomiting Qualified Codes: R11.2 - Nausea with vomiting, unspecified Diarrhea Qualified Codes: R19.7 - Diarrhea, unspecified Disposition: 01 HOME / SELF CARE / HOMELESS Condition: STABLE Referrals: NO PCP (PCP) LUZ HOLLY MD follow up in one week Patient Instructions: Abdominal Pain (Nonspecific), Alcohol Intoxication, [id number] Additional Instructions: You were evaluated in the emergency room for abdominal pain and noted to be intoxicated on alcohol. Please consider getting help at [facility]. Take the prescribed medications as ordered. Follow-up with the doctor provided in 1 week Scripts Ondansetron (ONDANSETRON ODT) 4 Mg Tab.rapdis 1 TAB PO PRN Q6-8HRS, #16 TAB Prov: JUSTIN MCWILLIAMS APRN 03/30/21 Dicyclomine Hcl (DICYCLOMINE HCL) 20 Mg Tablet 1 TAB PO TID, #30 TAB 1 Refill Prov: JUSTIN MCWILLIAMS APRN 03/30/21 JUSTIN MCWILLIAMS APRN Mar 30, 2021 11:33
[2021-03-30] MEDS ORDERED: CONTRAST GIVEN. MC PRN (11:45)
[2021-03-30] MEDS ORDERED: IOHEXOL 300 MG/ML 100ML VIAL. IV ONE (11:45)
[2021-03-30 12:38] LABS: BASO % 1 % (0-3); EOS % 0 % (0-3); HEMATOCRIT 45.3 % (39.0-53.0); HEMOGLOBIN 15.9 g/dL (13.0-17.5); LYMPH # 0.8 x10^3/uL (1.0-4.8); LYMPH % 17 % (24-48); MEAN CORPUSCULAR HEMOGLOBIN 32 pg (25-35); MEAN CORPUSCULAR HGB CONC 35 g/dL (31-37); MEAN CORPUSCULAR VOLUME 91 fL (79-100); MONO # 0.4 x10^3/uL (0.0-1.1); MONO % 7 % (0-9); NEUT # 3.7 x10^3/uL (1.8-7.7); NEUT % 76 % (31-73); PLATELET COUNT 265 x10^3/uL (140-400); RED BLOOD COUNT 4.96 x10^6/uL (4.30-5.70); RED CELL DISTRIBUTION WIDTH 13.2 % (11.5-14.5); WHITE BLOOD COUNT 4.9 x10^3/uL (4.0-11.0)
[2021-03-30 12:43] LABS: BILIRUBIN,URINE NEGATIVE (NEG); COLOR,URINE AMBER; NITRITE,URINE NEGATIVE (NEG); PH,URINE 7.5 (<5.0-8.0); PROTEIN,URINE 30 mg/dL (NEG-TRACE)
[2021-03-30 12:46] LABS: CALCIUM 9.2 mg/dL (8.5-10.1); CREATININE 0.9 mg/dL (0.7-1.3); POTASSIUM 3.7 mmol/L (3.5-5.1)
[2021-03-30 12:47] LABS: BARBITURATES NEG (NEG); BENZODIAZEPINES NEG (NEG); CANNABINOIDS NEG (NEG); COCAINE NEG (NEG); METHADONE NEG (NEG); OPIATES NEG (NEG); PHENCYCLIDINE NEG (NEG)
[2021-03-30 12:51] LABS: AMPHETAMINE/METHAMPHETAMINE NEG (NEG)
[2021-03-30 12:52] LABS: CLARITY,URINE CLEAR; RBC,URINE 0 /HPF (0-2)
[2021-03-30 12:52] LABS: ALBUMIN/GLOBULIN RATIO 1.1 (1.0-1.7); TOTAL BILIRUBIN 0.4 mg/dL (0.2-1.0); TOTAL PROTEIN 7.8 g/dL (6.4-8.2)
[2021-03-30 12:53] LABS: BACTERIA,URINE FEW /HPF (0-FEW)
--- NOTE | 2021-03-30 12:53 | RAD ---
EXAMINATION: CT abdomen and pelvis with IV contrast. INDICATION:35 years, Male, epigastric pain. TECHNIQUE: Axial CT images of the abdomen and pelvis were obtained. Coronal and sagittal reformatted performed. COMPARISON: 12/29/2020. Exposure: One or more of the following individualized dose reduction techniques were utilized for thi s examination: 1. Automated exposure control 2. Adjustment of the mA and/or kV according to patient size 3. Use of iterative reconstruction technique. FINDINGS: LOWER CHEST: Unremarkable. ABDOMEN/PELVIS: Normal size and morphology of the liver with homogeneous enhancement. Unchanged subcentimeter hypoden sity in the right hepatic lobe, too small to characterize, favors benign etiology such as cyst. No patino spicious focal hepatic lesion. Gallbladder, biliary ducts, spleen and pancreas are unremarkable. No h ydronephrosis or nephrolithiasis in either kidney. No adrenal nodule. No bowel obstruction or wall thickening. Few colonic diverticulosis without acute diverticulitis. Nor mal appendix. Normal caliber abdominal aorta. Mesenteric arteries and portal vein are patent. No pneu moperitoneum or ascites. No abdominopelvic lymphadenopathy by size criteria. Unremarkable urinary jose dder and prostate. Small to moderate and left testicular hydrocele. MUSCULOSKELETAL: No acute osseous process. IMPRESSION: 1. No acute abnormality in the abdomen or pelvis. 2. Few colonic diverticulosis without acute diverticulitis. Electronically signed by: Gladys Marie MD (03/30/2021 12:51 PM) [id number]
[2021-03-30] MEDS ORDERED: DICY20TA3 PO (14:06)
[2021-03-30] MEDS ORDERED: ONDA4TAB12 PO (14:06)
[2021-03-30 14:19] VITALS: BP 162/93
--- NOTE | 2021-04-01 10:11 | NUR ---
IP: Have attempted x 2 to contact pt concerning covid results, first time on 03/31/21. Still no answer, left a voicemail each time to return the call.
--- NOTE | 2021-04-02 12:48 | NUR ---
IP: Informed pt of negative covid results. Verbalized understanding.
== END 2021-03-30 14:15 | disposition home or self-care (01) ==
LOC: ER 11:01
DX: R10.13 Epigastric pain (principal); Z20.822 Contact with and (suspected) exposure to COVID-19; R11.2 Nausea with vomiting, unspecified; R19.7 Diarrhea, unspecified; F10.129 Alcohol abuse with intoxication, unspecified; Y90.6 Blood alcohol level of 120-199 mg/100 ml; Z87.891 Personal history of nicotine dependence
CPT/HCPCS: 36415; 74177; 80053; 80307; 81001; 83690; 85025; 87426; 96365; 96375; 99285; G0480; J2405; J3411; J3490; J7030; Q9967; U0003; U0005